=== PATIENT | male | born 1990 | race African-American/Black ===

== ENCOUNTER 2019-03-24 12:24 | Emergency (ER) | payer MEDICAID ==
[~2019-03-24] VITALS: Ht 182.9 cm; Wt 91.0 kg
[2019-03-24] MEDS ORDERED: MORPHINE SULFATE 4 MG/ML CPJ (NOT FOR IM USE) IV STA (13:04)
[2019-03-24] MEDS: MORPHINE SULFATE 4 MG/ML CPJ (NOT FOR IM USE) IV ONE ×2 (14:38→16:26)
[2019-03-24 15:07] LABS: BASOPHILS % 0.2 % (0.0-2.0); EOSINOPHILS % 0.5 % (0.0-5.0); HEMATOCRIT. 42.6 % (42.0-52.0); HEMOGLOBIN. 13.8 g/dL (14.0-18.0); MEAN CORPUSCULAR VOLUME 86.6 fL (80.0-94.0); MEAN PLATELET VOLUME 9.5 fl (7.4-10.4); MONOCYTES % 8.5 % (2.0-8.0); NEUTROPHILS % 73.8 % (40.0-76.0); PLATELET 241 x1000/uL (130-400); RED BLOOD CELL COUNT 4.92 mill/uL (4.7-6.1); RED CELL DISTRIBUTION WIDTH 14.4 % (11.6-14.6)
[2019-03-24 15:14] LABS: CHLORIDE 106 mEq/L (98-107)
[2019-03-24] MEDS ORDERED: LIDOCAINE HCL 1% 20ML VIAL (Pyxis) INJ INFIL ONE (15:45)
[2019-03-24 17:42] VITALS: BP 144/81
== END 2019-03-24 17:45 | disposition home or self-care (01) ==
LOC: ER 12:24
DX: R55 Syncope and collapse (principal); S52.121A Displaced fracture of head of right radius, initial encounter for closed fracture; S42.001A Fracture of unspecified part of right clavicle, initial encounter for closed fracture; W10.8XXA Fall (on) (from) other stairs and steps, initial encounter; Y93.89 Activity, other specified; Y92.89 Other specified places as the place of occurrence of the external cause; Y99.8 Other external cause status
CPT/HCPCS: 12002; 36415; 70450; 71045; 73030; 73060; 73080; 73090; 73110; 73502; 73552; 80053; 84484; 85025; 96374; 96376; 99284; J2270; J3490; Z7610; A4565

== ENCOUNTER 2019-04-01 00:48 | Emergency (ER) | payer MEDICAID ==
[~2019-04-01] VITALS: Ht 185.4 cm; Wt 87.0 kg
[2019-04-01 05:23] VITALS: BP 121/81
== END 2019-04-01 05:11 | disposition home or self-care (01) ==
LOC: ER 00:48
DX: Z48.02 Encounter for removal of sutures (principal); M25.511 Pain in right shoulder; Z91.81 History of falling
CPT/HCPCS: 99283; Z7610